=== PATIENT | female | born 1960 | race Caucasian/White ===

== ENCOUNTER → 2016-09-06 | Outpatient (CLI) | payer OTHER ==
[~2016-09-06] MED LIST: GADOBUTROL 10 ML VIAL IVP ONE
--- NOTE | 2016-09-06 16:42 | MR ---
MRI of the Head (Before and Following Gadolinium) Clinical Indications: MS exacerbation. Restaging. Technique: T1-weighted images were obtained sagittally and axially. Diffusion-weighted, inversion r ecovery, and fast T2-weighted axial images were obtained. T1-weighted axial and coronal images were obtained after intravenous administration of 6.5 mL of Gadavist. Comparison examination: January 17, 2014. 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 There is also a subcortical white matter focus of hyperintensity p resent in the right parietal lobe superiorly, also unchanged. No new areas of white matter signal abn ormality are identified when compared to prior study. No areas of abnormal contrast enhancement ident ified on postcontrast enhanced imaging to suggest active demyelination. Craniocervical junction appears unremarkable. Carotid vertebrobasilar flow voids are present. Impression: Stable MRI examination of the brain. Features of demyelinating disease appear unchanged, without new lesion or abnormal enhancement identified..
== END ==
LOC: FIMAGING 14:42
PROVIDERS: ATTEND Psychiatry & Neurology Neurology
DX: G35 Multiple sclerosis (principal)
CPT/HCPCS: A9585

== ENCOUNTER → 2017-03-17 | Outpatient (CLI) | payer OTHER | LOC: FIMAGING 09:49 | PROVIDERS: ATTEND Family Medicine | DX: Z12.31 Encounter for screening mammogram for malignant neoplasm of breast (principal) | CPT/HCPCS: G0202 ==

== ENCOUNTER → 2017-05-23 | Outpatient (CLI) | payer OTHER | LOC: FIMAGING 13:40 | PROVIDERS: ATTEND Dermatology | DX: D17.21 Benign lipomatous neoplasm of skin and subcutaneous tissue of right arm (principal) ==

== ENCOUNTER → 2018-02-17 | Outpatient (CLI) | payer OTHER | LOC: FIMAGING 07:55 | PROVIDERS: ATTEND Psychiatry & Neurology Neurology | DX: G35 Multiple sclerosis (principal); R90.82 White matter disease, unspecified; M50.322 Other cervical disc degeneration at C5-C6 level; M53.82 Other specified dorsopathies, cervical region | CPT/HCPCS: A9585 ==